=== PATIENT | male | born 1980 | race Hispanic/Latino ===

== ENCOUNTER 2020-04-04 20:04 | Emergency (ER) | payer SELFPAY | END 2020-04-04 21:00 | disposition left against medical advice (07) | LOC: ED 20:04 | DX: R11.10 Vomiting, unspecified (principal); Z53.21 Procedure and treatment not carried out due to patient leaving prior to being seen by health care provider ==

== ENCOUNTER 2020-04-12 12:08 | Emergency (ER) | payer SELFPAY ==
[2020-04-12] MEDS ORDERED: ONDANSETRON 4 MG/2 ML INJ IV ONE (12:40)
[2020-04-12] MEDS ORDERED: LORazepam 2 MG/ML VIAL IV ONE (12:40)
--- NOTE | 2020-04-12 12:44 | Emergency Department Report ---
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 Patient stated that he had multiple surgeries for that. Patient brought to the emergency room from home via EMS for evaluation of nausea vomiting and diarrhea. Patient stated that he had a bloody diarrhea. Patient stated the symptoms has been going on for 4 to 5 days. Patient also stated that he is having a panic attack and he wants some help. Patient denied any fever chills. No chest pain or shortness of breath. MD Complaint: abdominal pain -: days(s) Location: epigastric Severity scale (0 -10): 2 Quality: aching Consistency: intermittent ED Review of Systems ROS: Stated complaint: ABDOMINAL PAIN/DIARRHEA/VOMITING Other details as noted in HPI Comment: All other systems reviewed and negative Constitutional: denies: chills, fever Respiratory: denies: cough, orthopnea, shortness of breath, SOB with exertion, SOB at rest, wheezing Cardiovascular: denies: chest pain, palpitations Gastrointestinal: abdominal pain, nausea, vomiting, diarrhea. denies: constipation, hematemesis, melena, hematochezia Musculoskeletal: denies: back pain Neurological: denies: headache, weakness, numbness, paresthesias, confusion ED Physical Exam - General Limitations: No Limitations General appearance: alert, in no apparent distress, anxious - Head Head exam: Present: atraumatic, normocephalic, normal inspection - Eye Eye exam: Present: normal appearance, PERRL - ENT ENT exam: Present: normal exam, normal orophraynx, mucous membranes moist - Neck Neck exam: Present: normal inspection, full ROM. Absent: tenderness, meningismus, lymphadenopathy, thyromegaly - Respiratory Respiratory exam: Present: normal lung sounds bilaterally - Cardiovascular Cardiovascular Exam: Present: regular rate, normal rhythm, normal heart sounds - GI/Abdominal GI/Abdominal exam: Present: soft, normal bowel sounds. Absent: distended, tenderness, guarding, rebound, rigid, organomegaly, mass, bruit, pulsatile mass, hernia - Extremities Exam Extremities exam: Present: normal inspection, full ROM, normal capillary refill. Absent: pedal edema, calf tenderness - Back Exam Back exam: Present: normal inspection, full ROM. Absent: CVA tenderness (R), CVA tenderness (L) - Neurological Exam Neurological exam: Present: alert, oriented X3, CN II-XII intact, normal gait, reflexes normal. Absent: motor sensory deficit - Psychiatric Psychiatric exam: Present: normal mood, anxious. Absent: depressed, agitated, flat affect, manic, homicidal ideation, suicidal ideation - Skin Skin exam: Present: warm, intact, normal color ED Course Vital Signs 04/12/20 19:19 Pulse Rate 80 Respiratory 18 Rate Blood Pressure 126/72 [Left] O2 Sat by Pulse 99 Oximetry ED Medical Decision Making - Lab Data Result diagrams: 04/12/20 12:44 04/12/20 12:44 Critical care attestation.: If time is entered above; I have spent that time in minutes in the direct care of this critically ill patient, excluding procedure time. ED Disposition Clinical Impression: Vomiting, Panic attack Disposition: DC-07 LEFT AGAINST MED ADVICE Is pt being admited?: No Condition: Stable
[2020-04-12 13:15] LABS: Basophils % (Auto) 0.3 % (0.0-1.8); Eosinophils # (Auto) 0.3 K/mm3 (0.0-0.4); Eosinophils % (Auto) 2.6 % (0.0-4.3); Hemoglobin 14.3 gm/dl (11.8-15.2); Lymphocytes # (Auto) 2.2 K/mm3 (1.2-5.4); Lymphocytes % (Auto) 21.8 % (13.4-35.0); Mean Corpuscular HGB Conc 33 % (32-34); Mean Corpuscular Volume 87 fl (84-94); Monocytes # (Auto) 0.8 K/mm3 (0.0-0.8); Monocytes % (Auto) 7.5 % (0.0-7.3); Platelet Count 263 K/mm3 (140-440); Red Blood Count 4.97 M/mm3 (3.65-5.03)
[2020-04-12 13:38] LABS: Alanine Aminotransferase 70 units/L (7-56); Albumin 4.9 g/dL (3.9-5); BUN/Creatinine Ratio 10; Blood Urea Nitrogen 9 mg/dL (9-20); Calcium 9.9 mg/dL (8.4-10.2); Hemolysis Index 8
[2020-04-12 13:39] LABS: Bilirubin,Direct < 0.2 mg/dL (0-0.2)
[2020-04-12 19:20] VITALS: BP 126/72
== END 2020-04-12 14:00 | disposition left against medical advice (07) ==
LOC: ED 12:08
DX: F41.0 Panic disorder [episodic paroxysmal anxiety] (principal); R11.2 Nausea with vomiting, unspecified
CPT/HCPCS: 36415; 80048; 80076; 83690; 85025; 99283; J2060; J2405